=== PATIENT | male | born 1955 | race Hispanic/Latino ===

== ENCOUNTER 2019-07-31 21:04 | Inpatient (IN) | payer SELFPAY ==
[2019-07-31 22:01] LABS: #Basophils 0.1 thou/uL (0.0-0.2); #Eosinphils 0.4 thou/uL (0.0-0.7); #Lymphocytes 1.6 thou/uL (1.20-3.40); #Monocytes 0.9 thou/uL (0.11-0.59); #Neutrophils 7.1 thou/uL (1.40-6.50); %Basophils 0.7 % (0.0-1.0); %Lymphocytes 15.8 % (21.0-51.0); %Monocytes 8.8 % (0.0-10.0); %Neutrophils 70.6 % (42.0-75.0); Hemoglobin 14.7 g/dL (14.0-18.0); Mean Corpuscular HGB CONC 34.8 g/dL (32.0-36.0); Mean Corpuscular Hemoglobin 32.4 pg (27.0-31.0); Mean Corpuscular Volume 93.1 fL (78.0-98.0); Mean Platelet Volume 7.6 fL (7.4-10.4); Platelet Count 241 thou/uL (130-400); Red Blood Cell (RBC) Count 4.52 mill/uL (4.70-6.10); White Blood Cell (WBC) Count 10.1 thou/uL (4.8-10.8)
[2019-07-31] MEDS ORDERED: traMADol HCl 50 MG TAB ONE (22:42)
[2019-07-31] MEDS ORDERED: Nitroglycerin 0.4 MG TAB 1 EACH ONE (22:52)
--- NOTE | 2019-07-31 23:57 | ULT ---
US Venous Doppler Rt Unilat History: Upper extremity pain Comparison: None. Findings: Real-time grayscale, color, and spectral analysis of the right upper extremity venous syste m was performed. The internal jugular, subclavian, axillary veins as well as basilic, brachial, cephalic, ulnar, radial veins were interrogated. Normal flow, augmentation, and compression. Soft tissue fluid collection near the area of interest in the right elbow. Impression: 1. No deep venous thrombosis. 2. At the area of interest is a fluid collection in the deep soft tissues. This may represent hematom a or bursitis. MRI recommended if clinically warranted.
--- NOTE | 2019-07-31 23:59 | RAD ---
XR Chest 1 View Portable History: Chest pain Comparison: None. Findings: Heart size is enlarged. Lungs are without confluent airspace consolidation, pneumothorax, o r effusion. No acute osseous abnormality. Impression: Cardiomegaly otherwise unremarkable exam.
[2019-08-01 00:24] LABS: ALT (SGPT) 16 U/L (8-55); AST (SGOT) 17 U/L (5-34); Albumin 3.1 g/dL (3.4-4.8); Alkaline Phosphatase 110 U/L (40-110); Anion Gap 10 mmol/L (10-20); BUN (Urea Nitrogen) 18 mg/dL (8.4-25.7); Bilirubin, Total 0.2 mg/dL (0.2-1.2); Calc. Creatinine Clearance 0 mL/min (70-130); Calcium 8.1 mg/dL (7.8-10.44); Carbon Dioxide 22 mmol/L (23-31); Chloride 107 mmol/L (98-107); Estimated GFR-MDRD 41; Glucose 102 mg/dL (80-115); Lipase 31 U/L (8-78); Protein, Total 6.1 g/dL (5.8-8.1); Sodium 135 mmol/L (136-145)
[2019-08-01] MEDS ORDERED: hydrALAZINE 20 MG/ML VIAL ONE ×2 (00:38→06:34)
[2019-08-01] MEDS ORDERED: Activated Charcoal/Sorbitol 25 GM/120 ML TUBE ONE (02:55)
[2019-08-01] MEDS ORDERED: Aspirin Chewable 81 MG TAB ONE (02:55)
[2019-08-01] MEDS ORDERED: hydrALAZINE 20 MG/ML VIAL SLOW IVP PRN (04:33)
[2019-08-01] MEDS ORDERED: Ondansetron ODT 4 MG TAB SL PRN (04:33)
[2019-08-01] MEDS ORDERED: Ondansetron PF 4 MG/2 ML Vial IVP PRN (04:33)
[2019-08-01] MEDS ORDERED: Acetaminophen 325 MG TAB PO PRN ×2 (04:33→12:34)
[2019-08-01 05:01] LABS: Troponin I 0.048 ng/mL (< 0.028)
--- NOTE | 2019-08-01 08:06 | CT ---
CT BRAIN NONCONTRAST: DATE: 08/01/2019 1:05 AM HISTORY: 64-year-old male with headache. There is no [facility] report available. It is assumed that this was not sent to [facility] FINDINGS: There is no evidence of acute intra-axial or extra-axial hemorrhage. There is no midline shift or any other mass effect. There is no extra-axial fluid collection. The ventricles are normal in size and configuration. The tympanomastoid cavities, and the upper portions of the paranasal sinuses included in these images, are grossly clear. Calvarium is intact. IMPRESSION: Normal.
--- NOTE | 2019-08-01 09:32 | CT ---
PRELIMINARY REPORT/[facility]/EMERGENCY AFTER HOURS PROCEDURE PROCEDURE INFORMATION: Exam: CT Angiography Head With Contrast Exam date and time: 08/01/2019 1:06 AM Clinical history: 64 years old, male; Patient HX: 64 yo male presents for right elbow pain and swelling that has been worsening for the past 5 days. PT reports he has not taken any medication. Denies recent injury, states he injured the elbow many years ago after a fall. PT reports HTN that is untreated. Reports he has had worsening headache that is posterior and radiates to superior scalp. Reports eye pain and vision changes. PT reports chest pressure that he states he has had for many years and is not new TECHNIQUE: Imaging protocol: Computed tomography angiography of the head with intravenous contrast. 3D rendering: MIP reconstructed images were created and reviewed. COMPARISON: No relevant prior studies available. FINDINGS: Right internal carotid artery: Intracranial segment is patent with no significant stenosis. No aneurysm. Right anterior cerebral artery: No occlusion or significant stenosis. No aneurysm. Right middle cerebral artery: No occlusion or significant stenosis. No aneurysm. Right posterior cerebral artery: No occlusion or significant stenosis. No aneurysm. Right vertebral artery: No occlusion or significant stenosis. No aneurysm. Left internal carotid artery: Intracranial segment is patent with no significant stenosis. No aneurysm. Left anterior cerebral artery: No occlusion or significant stenosis. No aneurysm. Left middle cerebral artery: No occlusion or significant stenosis. No aneurysm. Left posterior cerebral artery: No occlusion or significant stenosis. No aneurysm. Left vertebral artery: No occlusion or significant stenosis. No aneurysm. Basilar artery: No occlusion or significant stenosis. No aneurysm. IMPRESSION: No acute findings. PROCEDURE INFORMATION: Exam: CT Angiography Neck With Contrast Exam date and time: 08/01/2019 1:06 AM Clinical history: 64 years old, male; Patient HX: 64 yo male presents for right elbow pain and swelling that has been worsening for the past 5 days. PT reports he has not taken any medication. Denies recent injury, states he injured the elbow many years ago after a fall. PT reports HTN that is untreated. Reports he has had worsening headache that is posterior and radiates to superior scalp. Reports eye pain and vision changes. PT reports chest pressure that he states he has had for many years and is not new TECHNIQUE: Imaging protocol: Computed tomography angiography of the neck with intravenous contrast. 3D rendering: MIP reconstructed images were created and reviewed. COMPARISON: No relevant prior studies available. FINDINGS: VASCULATURE: Right common carotid artery: No stenosis. No dissection or occlusion. Right internal carotid artery: 65% proximal stenosis. No dissection or occlusion. Right external carotid artery: No occlusion or stenosis of the origin. Right vertebral artery: No stenosis. No dissection or occlusion. Left common carotid artery: No stenosis. No dissection or occlusion. Left internal carotid artery: Unremarkable extracranial segment. No stenosis. No dissection or occlusion. Left external carotid artery: No occlusion or stenosis of the origin. Left vertebral artery: No stenosis. No dissection or occlusion. NECK: Bones/joints: No acute fracture. Soft tissues: Normal. No significant soft tissue swelling. IMPRESSION: Moderate proximal right internal carotid artery stenosis. COMMENT: Reference per NASCET criteria for degree of stenosis: Mild: less than 50% stenosis. Moderate: 50- 69% stenosis. Severe: 70-94% stenosis. Near occlusion: 95-99% stenosis. Thank you for allowing us to participate in the care of your patient. Dictated and Authenticated by: Shakira Vasquez MD 08/01/2019 1:43 AM Central Time ([place] & [place]) FINAL REPORT BY DR. OQUENDO EMERGENCY AFTER HOURS STUDY CT ANGIOGRAM NECK WITH CONTRAST CT ANGIOGRAM BRAIN WITH CONTRAST: DATE: 08/01/2019 1:08 AM HISTORY: 64-year-old male with headache. TECHNIQUE: After IV contrast injection, arterial bolus chasing technique scan performed from AP window to vertex of head. Coronal and sagittal 3-D MIP reconstructions. FINDINGS: No intracranial aneurysm. No intracranial high-grade [place] proximal vessel arterial stenosis or occlusion. No dural venous sinus thrombosis. The preliminary report by [facility] says that there is 69% stenosis in the right internal ca rotid artery. Actually, the moderate stenosis is in the left internal carotid artery due to calcified and noncalcif ied plaque. The right internal carotid artery has only mild noncalcified plaque, and mild stenosis of approximate ly 20% or less. This is a disagreement with the preliminary report by [facility]. I agree with the rest of the report IMPRESSION: 1. Moderate stenosis at proximal left internal carotid. 2. Otherwise negative. Transcribed Date/Time: 08/01/2019 10:23 AM
[2019-08-01] MEDS ORDERED: Bisacodyl 10 MG SUPP PR PRN (12:34)
[2019-08-01] MEDS ORDERED: Senokot S 8.6-50 MG TAB PO PRN (12:34)
[2019-08-01] MEDS ORDERED: Guaifenesin DM 100-10/5 ML UDCUP PO PRN (12:34)
[2019-08-01] MEDS ORDERED: Amlodipine 10 MG TAB PO SCH (13:15)
[2019-08-01] MEDS: hydrALAZINE 25 MG TAB PO SCH ×2 (13:19→19:59)
[2019-08-01] MEDS: cefTRIAXone\\ROCEPHIN 2 GM in Sodium Chloride 0.9% 100 ML IVPB SCH (13:20)
[2019-08-01] MEDS: Sodium Chloride 0.9% 1,000 ML IV SCH (13:22)
--- NOTE | 2019-08-01 13:38 | RAD ---
RIGHT ELBOW 2 VIEWS: HISTORY: Bursitis. Elbow pain. FINDINGS: There are fairly pronounced arthritic changes of the elbow. This includes degenerative changes of th e radiocapitellar joint space as well as coronoid and olecranon spurs. There is also osteophytic saida nge at the triceps tendon insertion on the olecranon. No joint effusion. IMPRESSION: No acute changes. Moderately severe arthritic changes of the elbow. POS: TPC
[2019-08-01] MEDS ORDERED: Prevnar 13-Val Conj/PF 0.5 ML SYRINGE IM ONE (13:45)
[2019-08-01] MEDS ORDERED: FLU VACC TS2019-20(65YR UP)/PF 180 MCG/0.5 ML SYRINGE IM ONE (13:45)
--- NOTE | 2019-08-01 13:57 | CON ---
DATE OF CONSULTATION: 08/01/2019 REQUESTING PHYSICIAN: Dr. Nikia Zuniga. CONSULTING PHYSICIAN: Dr. Keith Koenig. REASON FOR CONSULTATION: Right elbow swelling and discomfort. BRIEF CLINICAL HISTORY: Kevin is a 64-year-old male, who was admitted to the emergency room for right elbow pain, which has been present and progressive for the last 2 weeks and also symptomatic hypertension. He was admitted to the Medicine Service and we have been consulted for the elbow swelling, redness, erythema, and discomfort. There is no trauma to preceded the onset of pain. PAST MEDICAL HISTORY: Hypertension and hyperlipidemia. PAST SURGICAL HISTORY: Noncontributory other than a remote injury to the right elbow approximately 20 years ago from a fall, also appendectomy. PHYSICAL EXAMINATION: EXTREMITIES: Visual inspection of right upper extremity demonstrates to have limited range of motion with about 165 degrees extension. He has full flexion. Tenderness is elicited with palpation over the olecranon bursa. Scant fluid is palpable. It is mildly fluctuant, but again it is not an impressive examination in terms of fluctuance. He does have some erythema extending around the joint itself. He can supinate, pronate, and range the elbow without provocative and concordant pain. Point tenderness is provocative and concordant for his admitting discomfort. IMPRESSION: Right elbow septic olecranon bursitis. PLAN: We will go and start 2 g of Rocephin q.24. See how the erythema response and whether or not the cellulitis improves. If so, then we will probably perform bedside I and D tomorrow. We will re-evaluate in 24 hours. Job ID: [id number]
--- NOTE | 2019-08-01 14:54 | ULT ---
ULTRASOUND RETROPERITONEUM COMPLETE: (RENAL) DATE: 08/01/2019 HISTORY: 64-year-old male in acute kidney injury FINDINGS: The right kidney measures 10 x 4.5 x 5 cm. The left kidney measures 10 x 5 x 4.5 cm. Both kidneys have normal parenchymal echogenicity. There is no hydronephrosis. No moderate sized or large renal cystic or solid renal lesion is identified. Cursory images of the urinary bladder demonstrate no gross abnormality. IMPRESSION: Normal
[2019-08-01 15:36] LABS: Bacteria/HPF None Seen HPF (None Seen); Bilirubin Negative (Negative); Blood, Urine Trace (Negative); Clarity Clear (Clear); Glucose, Urine (Dipstick) 30 mg/dL (Negative); Leukocyte Negative Leu/uL (Negative); Nitrite Negative (Negative); Protein, Urine (Dipstick) 300 mg/dL (Neg-Trace); RBC/HPF 0-3 HPF (0-3); Squamous Epithelial None Seen HPF (0-3); Urobilinogen Normal mg/dL (Less than 2); WBC/HPF 0-3 HPF (0-3)
--- NOTE | 2019-08-01 15:41 | HP ---
REASON FOR ADMISSION: Hypertensive urgency, acute kidney injury, right olecranon septic bursitis, right internal carotid moderate stenosis. HISTORY OF PRESENTING ILLNESS: The patient came to ER with complaints of right upper extremity swelling. This has been progressively getting worse from last 5 days. He has had trouble extending his arm without pain. He also had headache on arrival and blood pressure was elevated at 210/107 on arrival to the ER. Currently, his blood pressure is stable. His headache is resolving. No fever as such at home. Has not had prior right elbow pain. No history of gout. 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 He ambulates by himself. PAST MEDICAL AND SURGICAL HISTORY: History of hypertension, but has not been taking any medications from last 3 months; dyslipidemia, history of appendectomy. CURRENT MEDICATIONS: None. He sees a physician in [place] and usually gets medications from there. He has been off all medications for the last 3 months now. ALLERGIES: ALLERGIC TO BENADRYL. PERSONAL HISTORY: Does not abuse alcohol or drugs. No history of smoking. FAMILY HISTORY: Both parents in their 70s from natural causes as far as he knows. Code status is full. Power of anti tank missileman is son. REVIEW OF SYSTEMS: CONSTITUTIONAL: Negative for weight loss or gain, ability to conduct usual activities. SKIN: Negative for rash, itching. EYES: Negative for double vision, pain. ENT/MOUTH: Negative for nose bleeding, neck stiffness, pain, tenderness. CARDIOVASCULAR: Negative for palpitations, dyspnea on exertion, orthopnea. RESPIRATORY: Negative for shortness of breath, wheezing, cough, hemoptysis, fever or night sweats. GASTROINTESTINAL: Negative for poor appetite, abdominal pain, heartburn, nausea, vomiting, constipation, or diarrhea. GENITOURINARY: Negative for urgency, frequency, dysuria, nocturia. MUSCULOSKELETAL: Negative for pain, swelling. NEUROLOGIC/PSYCHIATRIC: Negative for anxiety, depression. ALLERGY/IMMUNOLOGIC: Negative for skin rash, bleeding tendency. PHYSICAL EXAMINATION: GENERAL: The patient is a 64-year-old male, who is currently not in any acute distress. VITAL SIGNS: Blood pressure is currently 156/90, on arrival was 219/107, pulse 56 per minute, respiratory rate 16 per minute, temperature 97.9 degrees Fahrenheit, saturating 97% on room air. NECK: Supple. No elevated JVD. HEENT: Eyes; extraocular muscles intact. Pupils reacting to light. Oral cavity, mucous membranes are moist. No exudates or congestion. CARDIOVASCULAR: S1 and S2 heard. Regular rhythm. RESPIRATORY: Air entry 2+ bilateral. No rales or rhonchi. ABDOMEN: Soft. Bowel sounds heard. No tenderness, rigidity, or guarding. EXTREMITIES: Right upper extremity elbow at the olecranon area is very tender to touch. There is erythema and edema of the elbow and forearm. Right radial and ulnar pulses are felt. Active range of motion is normal in the wrist and finger. There is no peripheral edema in the lower extremities or calf tenderness. VASCULAR: Peripheral pulses 2+ bilateral. No ischemic ulcerations or gangrene. CENTRAL NERVOUS SYSTEM: No gross focal deficits noted. The patient is alert, awake, oriented well. PSYCHIATRIC: The patient's mood is euthymic. No hallucinations or delusions. LABORATORY DATA: CT brain and CT angio of brain done shows no acute findings in the CT brain. CT angio of brain and CT neck shows moderate proximal right internal carotid stenosis. Chest x-ray done shows no acute cardiopulmonary abnormalities. Right upper extremity shows no evidence of DVT. Right elbow x-ray shows signs of osteoarthritis. LABORATORY DATA: White count of 10, hemoglobin and hematocrit are 14 and 42, platelet count is 241 with 70% neutrophils. BUN 18, creatinine 1.7, serum bicarb 22, BNP 54, albumin is 3.1, lipase is 31. LFTs are within normal limits. CLINICAL IMPRESSION AND PLAN: The patient will be admitted to medical floor for right elbow septic olecranon bursitis, acute kidney injury, hypertensive urgency, moderate right ICA stenosis, mild metabolic acidosis. He is currently bradycardic and will try to avoid AV suri blockers. He will be on Norvasc, hydralazine 75 mg three times daily. Ceftriaxone and Levaquin based on renal function. Orthopedic consultation with Dr. Koenig will be obtained. The patient likely will need aspiration of the bursa to evaluate if he has purulence. We will continue to closely monitor him on medical floor. We will also place him on aspirin and Plavix in view of moderate ICA stenosis. The patient has been noncompliant with his medications for his hypertension for the last 3 months. Likely his hypertension will get controlled in the next 24 hours with current medications. Ultrasound of the kidneys will be obtained to see for evidence of chronic medical disease. Job ID: [id number]
[2019-08-02] MEDS: Sodium Chloride 0.9% 1,000 ML IV SCH ×2 (00:06→06:26)
[2019-08-02 07:26] LABS: #Eosinphils 0.2 thou/uL (0.0-0.7); #Lymphocytes 0.8 thou/uL (1.20-3.40); #Monocytes 0.7 thou/uL (0.11-0.59); #Neutrophils 5.7 thou/uL (1.40-6.50); %Basophils 0.3 % (0.0-1.0); %Eosinophils 3.2 % (0.0-10.0); %Lymphocytes 11.2 % (21.0-51.0); %Monocytes 9.7 % (0.0-10.0); %Neutrophils 75.6 % (42.0-75.0); Hemoglobin 14.1 g/dL (14.0-18.0); Mean Corpuscular HGB CONC 34.5 g/dL (32.0-36.0); Mean Corpuscular Hemoglobin 32.6 pg (27.0-31.0); Mean Corpuscular Volume 94.5 fL (78.0-98.0); Platelet Count 213 thou/uL (130-400); RBC Distribution Width 11.9 % (11.5-14.5); Red Blood Cell (RBC) Count 4.32 mill/uL (4.70-6.10); White Blood Cell (WBC) Count 7.5 thou/uL (4.8-10.8)
[2019-08-02 07:46] LABS: Albumin 2.9 g/dL (3.4-4.8); Anion Gap 9 mmol/L (10-20); BUN (Urea Nitrogen) 16 mg/dL (8.4-25.7); Calc. Creatinine Clearance 57 mL/min (70-130); Calcium 8.2 mg/dL (7.8-10.44); Carbon Dioxide 23 mmol/L (23-31); Chloride 107 mmol/L (98-107); Estimated GFR-MDRD 40; Glucose 99 mg/dL (80-115); Phosphorus 2.8 mg/dL (2.3-4.7); Potassium 4.3 mmol/L (3.5-5.1); Sodium 135 mmol/L (136-145)
[2019-08-02] MEDS: hydrALAZINE 25 MG TAB PO SCH ×3 (08:40→20:27)
[2019-08-02] MEDS: Aspirin 81 mg Enteric Coated Tablet PO SCH (08:41)
[2019-08-02] MEDS: Amlodipine 10 MG TAB PO SCH (08:41)
[2019-08-02] MEDS: Enoxaparin Sodium 40 MG/0.4 ML SYRINGE SC SCH (08:42)
[2019-08-02] MEDS: cefTRIAXone\\ROCEPHIN 2 GM in Sodium Chloride 0.9% 100 ML IVPB SCH (12:26)
[2019-08-02] MEDS ORDERED: Lidocaine 1% (PF) 30 ML VIAL SC SCH (13:15)
--- NOTE | 2019-08-02 13:17 | PRG ---
DATE OF SERVICE: 08/02/2019 SUBJECTIVE: Kevin a 64-year-old male, who was started on Rocephin 2 g yesterday for a right elbow septic bursitis. He has had a significant improvement in his condition and also diminishment of pain as a result of the antibiotic initiation. I had a short discussion with the patient yesterday regarding incision and drainage washout, which will be required for full evacuation. OBJECTIVE: VITAL SIGNS: Temperature 98.1, pulse 74, respiratory rate 20, blood pressure is 145/73. EXTREMITIES: Visual inspection of the right upper extremity demonstrates still has a little bit of fluctuance at the olecranon bursa and he has adequate range of motion of the elbow, it was little stiff with flexion extension. He has a flexion contracture due to old injury. His erythema has significantly improved. His skin turgor has also improved. IMPRESSION: 1. Right elbow septic olecranon bursitis. 2. Arthritis of the right elbow joint, noted on radiograph. PLAN: We will continue antibiotics for another 24 hours. We will come back tomorrow and plan for a bedside I and D of the right olecranon bursa. Job ID: [id number]
--- NOTE | 2019-08-02 14:40 | PDOC.HOSPP ---
- Subjective Encounter Date: 08/02/19 Encounter Time: 08:40 Subjective: right elbow pain is better no sob daughter and other family at bedside - Objective Vital Signs & Weight: Vital Signs (12 hours) Temp Pulse Resp BP BP BP Pulse Ox 08/02/19 14:28 74 150/75 H 08/02/19 12:25 98.1 F 74 20 145/73 H 96 08/02/19 08:41 72 08/02/19 08:40 72 164/75 H 08/02/19 08:00 96 08/02/19 07:38 98.4 F 72 20 164/75 H 96 08/02/19 06:48 98.1 F 74 20 142/62 H 94 L Weight Weight 206 lb 3 oz I&O: 08/01/19 08/02/19 08/03/19 06:59 06:59 06:59 Intake Total 1550 Balance 1550 Result Diagrams: 08/02/19 06:51 08/02/19 06:51 Hospitalist ROS - Medication Medications: Active Medications Generic Name Dose Route Start Last Admin Trade Name Freq PRN Reason Stop Dose Admin Acetaminophen 650 mg 08/01/19 12:34 08/01/19 13:19 Tylenol PO 650 mg Q4H PRN Administration Headache/Fever/Mild Pain (1-3) Amlodipine Besylate 10 mg 08/02/19 09:00 08/02/19 08:41 Norvasc PO 10 mg DAILY BRANDI Administration Aspirin 81 mg 08/02/19 09:00 08/02/19 08:41 Ecotrin PO 81 mg DAILY BRANDI Administration Enoxaparin Sodium 40 mg 08/02/19 09:00 08/02/19 08:42 Lovenox SC 40 mg 0900 BRANDI Administration Hydralazine HCl 75 mg 08/01/19 15:00 08/02/19 14:28 Apresoline PO 75 mg TID BRANDI Administration Levofloxacin 250 mg/ Device 50 mls @ 100 mls/hr 08/01/19 14:00 08/02/19 14:23 IVPB 50 mls Q24HR BRANDI Administration Sodium Chloride 1,000 mls @ 100 mls/hr 08/01/19 12:34 08/02/19 06:26 Normal Saline 0.9% IV 08/02/19 18:33 1,000 mls .Q10H BRANDI Administration Ceftriaxone Sodium 2 gm/ 100 mls @ 200 mls/hr 08/01/19 13:00 08/02/19 12:26 Sodium Chloride IVPB 100 mls Q24HR BRANDI Administration - Exam General Appearance: NAD, awake alert Eye: PERRL, anicteric sclera ENT: no oropharyngeal lesions, moist mucosa Neck: supple, no JVD Heart: RRR, no murmur Respiratory: no wheezes, no rales Gastrointestinal: soft, non-tender, non-distended, normal bowel sounds Extremities: no cyanosis, no edema Neurological: cranial nerve grossly intact, no focal deficits Psychiatric: normal affect, A&O x 3 Hosp A/P (1) Septic olecranon bursitis of right elbow Code(s): M71.121 - OTHER INFECTIVE BURSITIS, RIGHT ELBOW Status: Acute (2) DEEP (acute kidney injury) Code(s): N17.9 - ACUTE KIDNEY FAILURE, UNSPECIFIED Status: Acute (3) CKD (chronic kidney disease) stage 3, GFR 30-59 ml/min Code(s): N18.3 - CHRONIC KIDNEY DISEASE, STAGE 3 (MODERATE) Status: Chronic (4) Obesity (BMI 30.0-34.9) Code(s): E66.9 - OBESITY, UNSPECIFIED Status: Chronic (5) Metabolic acidosis Code(s): E87.2 - ACIDOSIS Status: Resolved (6) Hypertension Code(s): I10 - ESSENTIAL (PRIMARY) HYPERTENSION Status: Chronic Qualifiers: Hypertension type: essential hypertension Qualified Code(s): I10 - Essential (primary) hypertension - Plan htn is getting under control with current meds is on ceftriaxone and levaquin ortho for bedside debridement in am continue norvasc, hydralazine and aspirin hemostable
[2019-08-03] MEDS: Amlodipine 10 MG TAB PO SCH (08:17)
[2019-08-03] MEDS: Aspirin 81 mg Enteric Coated Tablet PO SCH (08:18)
[2019-08-03] MEDS: hydrALAZINE 25 MG TAB PO SCH ×3 (08:18→20:46)
[2019-08-03] MEDS: Enoxaparin Sodium 40 MG/0.4 ML SYRINGE SC SCH (08:21)
--- NOTE | 2019-08-03 12:14 | PDOC.HOSPP ---
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 no headache, is amb in room son at bedside - Objective Vital Signs & Weight: Vital Signs (12 hours) Temp Pulse Resp BP BP BP Pulse Ox 08/03/19 08:18 67 08/03/19 08:17 67 152/87 H 08/03/19 08:00 95 08/03/19 07:59 98.1 F 67 18 152/87 H 96 08/03/19 04:00 98.6 F 72 18 166/80 H 96 Weight Weight 206 lb 3 oz I&O: 08/02/19 08/03/19 08/04/19 06:59 06:59 06:59 Intake Total 1550 Balance 1550 Result Diagrams: 08/02/19 06:51 08/02/19 06:51 Hospitalist ROS - Medication Medications: Active Medications Generic Name Dose Route Start Last Admin Trade Name Freq PRN Reason Stop Dose Admin Acetaminophen 650 mg 08/01/19 12:34 08/01/19 13:19 Tylenol PO 650 mg Q4H PRN Administration Headache/Fever/Mild Pain (1-3) Amlodipine Besylate 10 mg 08/02/19 09:00 08/03/19 08:17 Norvasc PO 10 mg DAILY BRANDI Administration Aspirin 81 mg 08/02/19 09:00 08/03/19 08:18 Ecotrin PO 81 mg DAILY BRANDI Administration Enoxaparin Sodium 40 mg 08/02/19 09:00 08/03/19 08:21 Lovenox SC Not Given 09 [facility] Hydralazine HCl 75 mg 08/01/19 15:00 08/03/19 08:18 Apresoline PO 75 mg TID BRANDI Administration Ceftriaxone Sodium 2 gm/ 100 mls @ 200 mls/hr 08/01/19 13:00 08/02/19 12:26 Sodium Chloride IVPB 100 mls Q24HR BRANDI Administration Sodium Chloride 10 ml 08/02/19 21:00 08/03/19 08:22 Flush - Normal Saline IVF 10 ml Q12HR BRANDI Administration - Exam General Appearance: NAD, awake alert Eye: PERRL, anicteric sclera ENT: no oropharyngeal lesions, moist mucosa Neck: supple, no JVD Heart: RRR, no murmur Respiratory: no wheezes, no rales Gastrointestinal: soft, non-tender, non-distended, normal bowel sounds Extremities: no cyanosis, no edema Extremities - other findings: right olecranon area is tender, elbow and forearm edema/erythema+ Neurological: cranial nerve grossly intact, no focal deficits Psychiatric: normal affect, A&O x 3 Hosp A/P (1) Septic olecranon bursitis of right elbow Code(s): M71.121 - OTHER INFECTIVE BURSITIS, RIGHT ELBOW Status: Acute (2) DEEP (acute kidney injury) Code(s): N17.9 - ACUTE KIDNEY FAILURE, UNSPECIFIED Status: Resolved (3) CKD (chronic kidney disease) stage 3, GFR 30-59 ml/min Code(s): N18.3 - CHRONIC KIDNEY DISEASE, STAGE 3 (MODERATE) Status: Chronic (4) Obesity (BMI 30.0-34.9) Code(s): E66.9 - OBESITY, UNSPECIFIED Status: Chronic (5) Metabolic acidosis Code(s): E87.2 - ACIDOSIS Status: Resolved (6) Hypertension Code(s): I10 - ESSENTIAL (PRIMARY) HYPERTENSION Status: Chronic Qualifiers: Hypertension type: essential hypertension Qualified Code(s): I10 - Essential (primary) hypertension - Plan htn is stable with current meds, add low dose lopressor. is on ceftriaxone and levaquin ortho for bedside debridement today continue norvasc, hydralazine and aspirin hemostable dc plan in am
[2019-08-03] MEDS: cefTRIAXone\\ROCEPHIN 2 GM in Sodium Chloride 0.9% 100 ML IVPB SCH (12:26)
--- NOTE | 2019-08-03 14:27 | PRG ---
DATE OF SERVICE: 08/03/2019 SUBJECTIVE: Kevin is a 64-year-old male, who is hospital day 2 after receiving 2 g of Rocephin and had improvement in his right elbow pain and discomfort. He is probably ready for I and D at the bedside today. OBJECTIVE: VITAL SIGNS: Temperature 98.6, pulse 72, and blood pressure is 152/87. GENERAL: He is alert, oriented, responsive, and appropriate. EXTREMITIES: Visual inspection of the right upper extremity demonstrates his erythema to be receded, significantly improved. Skin turgor appears normal, but he still has palpable fluctuance over the olecranon bursa. IMPRESSION: Septic olecranon bursitis of right elbow, presumptive Staphylococcus. PLAN: 1. The risks, benefits, options, alternatives, and rationale for proceeding with a bedside incision and drainage, washout, irrigation, and packing have been explained in great detail with the patient and he is ready to proceed. All questions were answered. No guarantee of outcome stated or implied. 2. Please see orders. Job ID: [id number]
--- NOTE | 2019-08-03 14:38 | OP ---
DATE OF PROCEDURE: 08/03/2019 PREOPERATIVE DIAGNOSIS: Right elbow septic olecranon bursitis. POSTOPERATIVE DIAGNOSIS: Right elbow septic olecranon bursitis. PROCEDURES PERFORMED: Bedside incision and drainage, washout, irrigation, and open packing of right elbow septic olecranon bursitis. ANESTHESIA: 1% xylocaine skin wheal local. SPECIMENS: None. ESTIMATED BLOOD LOSS: Negligible. INDICATIONS FOR PROCEDURE: The patient is a 64-year-old male, who was admitted 3 days ago for pain and swelling nature of the right elbow. Clinically, he had a septic bursitis; therefore, I started him on 2 g Rocephin every 24 hours, and he has had significant diminishment of pain, swelling, and discomfort, and now, he is ready for a bedside I and D. DESCRIPTION OF PROCEDURE: After informed consent was obtained, the patient was positioned appropriately in the left lateral decubitus position. The right elbow was then draped over a pillow. Right upper extremity was then prepped and draped in the usual sterile fashion. The apex of the abscess was identified by palpation, and once this was identified, I then used local skin wheal anesthesia 1% xylocaine, 5 mL in total. This was delivered using a 25-gauge 3/4 inch needle. Once adequate anesthesia was obtained, a #10 blade was then used to incise longitudinally. The skin and the subcutaneous layer were sharply dissected, carried down to the bursa itself, and upon entry of the bursa, brown purulent liquid was then expressed quite easily and very liquidy hemorrhagic mix. Q-tip was then used to probe. No loculations were identified. The purulence was completely evacuated manually with compression and expression. I then copiously irrigated the full wound with normal saline times about 50 to 60 mL. The wound was then packed with iodoform gauze. A sterile dressing was applied. Procedure was terminated without complication. The patient tolerated well. PLAN: We will continue Rocephin for another 24 hours and put the patient on outpatient treatment to include probably [place] p.o. Job ID: [id number]
[2019-08-03] MEDS: HYDROcodone/Acetaminophen 5/325 mg Tablet PO PRN ×2 (15:05→20:47)
[2019-08-03] MEDS: Metoprolol Tartrate 25 MG TAB PO SCH (20:46)
[2019-08-04 08:11] VITALS: BP 165/98; TEMP 98.5
[2019-08-04] MEDS: Amlodipine 10 MG TAB PO SCH (08:29)
[2019-08-04] MEDS: Metoprolol Tartrate 25 MG TAB PO SCH (08:29)
[2019-08-04] MEDS: Aspirin 81 mg Enteric Coated Tablet PO SCH (08:29)
[2019-08-04] MEDS: hydrALAZINE 25 MG TAB PO SCH (08:29)
[2019-08-04] MEDS: Enoxaparin Sodium 40 MG/0.4 ML SYRINGE SC SCH (08:30)
[2019-08-04] MEDS: HYDROcodone/Acetaminophen 5/325 mg Tablet PO PRN (08:32)
[2019-08-04] MEDS: cefTRIAXone\\ROCEPHIN 2 GM in Sodium Chloride 0.9% 100 ML IVPB SCH (10:53)
[2019-08-04 14:19] VITALS: BMI 30.2
--- NOTE | 2019-08-04 17:29 | DIS ---
DATE OF ADMISSION: 08/01/2019 DATE OF DISCHARGE: 08/04/2019 PRIMARY DISCHARGE DIAGNOSES: Right septic olecranon bursitis, status post incision and drainage; acute kidney injury, resolved; chronic kidney disease stage 3; obesity; metabolic acidosis due to acute kidney injury, resolved; and hypertension. PROCEDURES DONE DURING HOSPITALIZATION: CT brain showed no acute findings. CT angio of the neck showed moderate proximal right internal carotid artery stenosis. Ultrasound venous Doppler of right upper extremity done showed no evidence of DVT. Ultrasound kidneys bilateral showed normal findings. He has had incision and drainage of the right olecranon bursa by Dr. Giuseppe Patel with open packing. H and H 14 and 40, platelet count 213, white count of 7.5. BUN and creatinine 16 and 1.7, serum bicarb 23. BNP 54. DISCHARGE MEDICATIONS: 1. Keflex 500 mg p.o. three times daily for 10 days. 2. Aspirin 81 mg p.o. daily. 3. Norvasc 10 mg p.o. daily. 4. Hydralazine 75 mg p.o. three times daily. 5. Lisinopril 10 mg p.o. daily. 6. Metoprolol 25 mg p.o. twice daily. ALLERGIES: ALLERGIC TO DIPHENHYDRAMINE. INPATIENT CONSULT: Giuseppe Patel for Orthopedic Surgery. DISCHARGE PLAN: The patient to follow up with Giuseppe Patel/Dr. Koenig in 3 to 4 weeks and he needs to go to [facility] for all in 1 week BRIEF COURSE DURING HOSPITALIZATION: The patient initially came to ER with complaints of headache, hypertensive emergency, and right elbow pain and swelling. His hypertension was controlled with multiple medications. He is off medications for the last 3 months prior to arrival here. The patient had septic olecranon bursitis on the right side and has had consultation with Dr. Koenig for orthopedic surgery. He was on broad-spectrum IV antibiotics. His right elbow and forearm cellulitis are slowly resolving. He has had incision and drainage with packing of open wound done by Dr. Patel. He is hemodynamically stable. The patient's renal function is holding up, likely has chronic kidney disease stage 3 with creatinine around 1.7. He was initially fluid resuscitated for the first two days and later this was stopped as his creatinine did not improve much. He is hemodynamically stable. His has been taught to do dressing changes. He needs to follow up with Dr. Koenig as advised and primary care physician in 1 week. All his hypertension medications have been faxed to his pharmacy. Please note, I have seen and examined the patient on the day of discharge. Job ID: [id number]
== END 2019-08-04 15:19 | disposition home or self-care (01) | DRG 501 ==
LOC: ERS 21:04 → ERHOLD 08-01 03:58 → T4-B 08-01 11:46
PROVIDERS: ADMIT Internal Medicine; ATTEND Internal Medicine
PROC: 0M9 Bursae and Ligaments, Drainage (ICD-10-PCS; principal; 2019-08-03)
DX: M71.121 Other infective bursitis, right elbow (principal); N17.9 Acute kidney failure, unspecified; E87.2 Acidosis; L03.113 Cellulitis of right upper limb; M71.021 Abscess of bursa, right elbow; I12.9 Hypertensive chronic kidney disease with stage 1 through stage 4 chronic kidney disease, or unspecified chronic kidney disease; N18.3 Chronic kidney disease, stage 3 (moderate); E66.9 Obesity, unspecified; Z68.30 Body mass index [BMI] 30.0-30.9, adult; E78.5 Hyperlipidemia, unspecified; I65.21 Occlusion and stenosis of right carotid artery; Z91.09 Other allergy status, other than to drugs and biological substances; M19.021 Primary osteoarthritis, right elbow; I16.0 Hypertensive urgency
CPT/HCPCS: 36415; 70450; 70496; 70498; 71045; 76770; 80053; 80069; 81001; 83690; 83880; 84484; 85025; 90471; 90662; 90670; 93005; 96374; G0008; G0009; J0360; J0696; J1650; J1956; J3490